=== PATIENT | male | born 2000 | race Caucasian/White ===

== ENCOUNTER 2021-10-06 10:13 | Emergency (ER) | payer BC, OTHER ==
[2021-10-06 10:26] VITALS: BP 130/70; PULSE 83; TEMP 97.7; BMI 20.7
== END 2021-10-06 10:30 | disposition home or self-care (01) ==
LOC: JER 10:13
DX: J02.9 Acute pharyngitis, unspecified (principal); J06.9 Acute upper respiratory infection, unspecified
CPT/HCPCS: 87070; 87804; 99283-25; C9803; U0003; U0005